=== PATIENT | female | born 1990 | race Caucasian/White ===

== ENCOUNTER 2020-10-25 16:00 | Emergency (ER) | payer OTHER ==
[~2020-10-25] VITALS: Ht 167.6 cm; Wt 77.9 kg
--- NOTE | 2020-10-25 16:47 | NUR ---
PT WAS WALKED TO HER ROOM AND INSTRUCTED TO CHANGE INTO HOSPITAL GOWN BY TECH. PT WAS OBSERVED WALKING TO TOILET, STEADY GAIT.
--- NOTE | 2020-10-25 16:56 | NUR ---
ASSUMED CARE OF PT. SHE REPORTS LOSS OF VISION IN LEFT EYE, NUMBNESS AND STIFFNESS IN LEFT ARM. WHEN IT OCCURED, SHE CALLED AND BY TIME HE GOT HOME APPROX 30 MIN THE SX HAD RESOLVED. PT DENIES BLINDNESS, ABLE TO FOLLOW W/ HER EYES, PERRLA. NO NUMBNESS, TINGLING OR STIFFNESS IN HER LEFT ARM. PT IN GOWN, HOOKED TO BP AND SPO2 MONITOR. NADN, CALL LIGHT W/IN REACH.
--- NOTE | 2020-10-25 17:20 | NUR ---
PT TO CT
[2020-10-25 18:10] VITALS: BP 104/52
--- NOTE | 2020-10-25 18:23 | NUR ---
Patient given discharge instructions and they have confirmed that they understand the instructions. Patient ambulatory with steady gait.
== END 2020-10-25 18:20 | disposition home or self-care (01) ==
LOC: ED 18:00
DX: G43.009 Migraine without aura, not intractable, without status migrainosus (principal); R94.31 Abnormal electrocardiogram [ECG] [EKG]
CPT/HCPCS: 70450; 93005; 99284